=== PATIENT | female | born 1935 | race Caucasian/White ===

== ENCOUNTER 2018-12-11 11:18 | Inpatient (IN) | payer MEDICARE, BC ==
[~2018-12-11] VITALS: Ht 165.1 cm; Wt 60.0 kg
[~2018-12-11 11:18] MED LIST: ASPI-1265 PO; CARV3.122 PO; FLEC100T2 PO; MELO-100 PO; RABE20TA28 PO
[2018-12-11 11:46] LABS: BASOPHILS % (AUTO) 0.6 % (0-1); EOSINOPHILS # (AUTO) 0.1 X10'3 (0-0.9); EOSINOPHILS % (AUTO) 1.9 % (0-6); HEMATOCRIT 38.8 % (35.0-45.0); HEMOGLOBIN 13.1 g/dl (12.0-16.0); LYMPHOCYTES % (AUTO) 14.6 % (21-51); MEAN CORPUSCULAR HEMOGLOBIN 33.4 PG (27.0-31.0); MEAN CORPUSCULAR HGB CONC 33.9 g/dL (33.0-36.5); MEAN CORPUSCULAR VOLUME 98.4 FL (78-98); MONOCYTES # (AUTO) 0.6 X10'3 (0-0.9); MONOCYTES % (AUTO) 8.3 % (2-12); NEUTROPHILS # (AUTO) 5.2 X10'3 (1.8-7.7); NEUTROPHILS % (AUTO) 74.6 % (42-75); PLATELET COUNT 195 X10'3 (140-440); RED BLOOD COUNT 3.94 X10'6 (4.20-5.60); RED CELL DISTRIBUTION WIDTH 15.1 % (11.5-14.5); WHITE BLOOD COUNT 6.9 X10'3 (4.5-11.0)
[2018-12-11 12:03] LABS: ALANINE AMINOTRANSFERASE 199 U/L (12-78); ALBUMIN 3.7 G/DL (3.4-5.0); ALBUMIN/GLOBULIN RATIO 1.1 (1.1-1.5); ALKALINE PHOSPHATASE 171 IU/L (46-116); ANION GAP 8 (8-16); ASPARTATE AMINO TRANSFERASE 82 U/L (10-37); BILIRUBIN,TOTAL 0.8 MG/DL (0.1-1.0); BLOOD UREA NITROGEN 16 MG/DL (7-18); BUN/CREATININE RATIO 17.4 (6.6-38.0); CALCIUM 9.2 MG/DL (8.5-10.1); CHLORIDE 101 MMOL/L (99-107); CREATININE 0.92 MG/DL (0.40-0.90); GLUCOSE 115 MG/DL (70-104); POTASSIUM 4.3 MMOL/L (3.5-5.1); SODIUM 137 MMOL/L (135-145); TOTAL CARBON DIOXIDE 28.3 MMOL/L (24-32); eGFR 58 ML/MIN
[2018-12-11 12:05] LABS: PARTIAL THROMBOPLASTIN TIME 25 SECONDS (22-32)
[2018-12-11] MEDS ORDERED: flecainide 50mg tablet PO SCH (12:15)
[2018-12-11] MEDS ORDERED: diltiazem 5mg/ml 5ml inj. IV ONE ×3 (12:20→18:35)
[2018-12-11] MEDS ORDERED: aspirin 325mg tablet PO ONE (12:45)
[2018-12-11] MEDS ORDERED: mag hydrox/Alum hydrox/simeth 30ml oral suspension PO PRN (14:20)
[2018-12-11] MEDS ORDERED: magnesium hydroxide 30ml (MOM) UD suspension PO PRN (14:20)
[2018-12-11] MEDS ORDERED: morphine 2 MG/ML inj. syringe IV PRN ×2 (14:20)
[2018-12-11] MEDS ORDERED: ondansetron/PF 4mg/2ml inj IV PRN (14:20)
[2018-12-11] MEDS ORDERED: acetaminophen 325mg tablet PO PRN ×2 (14:20)
[2018-12-11] MEDS ORDERED: FLEC50TA26 PO (15:30)
[2018-12-11 16:16] VITALS: BP 155/94
--- NOTE | 2018-12-11 16:17 | NUR ---
Received patient from ER, obtained vital signs and hooked patient up to tele. Patient is in no apparent distress. Patient oriented to new environment. Will continue to monitor.
--- NOTE | 2018-12-11 17:34 | NUR ---
PAGER ID: [phone] MESSAGE: [phone] Malu Gomez Please address med rec/home med list. If you need nursing to print out TMS please let us know, Thank you. VISHAL Mcelroy
[2018-12-11 18:00] VITALS: BP 136/93
--- NOTE | 2018-12-11 18:18 | NUR ---
Patient in room PCU 3025. I have received report from Lilibeth WINN and had the opportunity to ask questions and assume patient care.
--- NOTE | 2018-12-11 18:22 | NUR ---
Problems reprioritized. Patient report given, questions answered & plan of care reviewed with Rocío.
[2018-12-11] MEDS ORDERED: diltiazem CD 180mg cap (once-daily) PO SCH (18:35)
[2018-12-11] MEDS: flecainide 50mg tablet PO SCH (18:46)
--- NOTE | 2018-12-11 18:49 | NUR ---
Spoke with Dr Song regarding pts rate being in the 120s-130s. MD ordered Cardizem CD 180mg PO once, Cardizem 10mg IV once, Eliquis 5mg PO once, and echo in the morning, and to hold tonights dose of flecainide.
[2018-12-11] MEDS: carVEDilol 3.125mg tablet PO SCH (19:02)
[2018-12-11] MEDS: apixaban 5mg tablet PO SCH (19:02)
[2018-12-11 22:00] VITALS: BP 114/62
--- NOTE | 2018-12-12 00:55 | NUR ---
Patient in room PCU 3025. I have received report from PA Alford and had the opportunity to ask questions and assume patient care.
--- NOTE | 2018-12-12 00:56 | NUR ---
I agree with Full assessment from PA Alford
[2018-12-12 02:00] VITALS: BP 108/72
[2018-12-12 04:57] LABS: BASOPHILS % (AUTO) 0.8 % (0-1); EOSINOPHILS # (AUTO) 0.3 X10'3 (0-0.9); EOSINOPHILS % (AUTO) 5.3 % (0-6); HEMATOCRIT 34.4 % (35.0-45.0); HEMOGLOBIN 11.9 g/dl (12.0-16.0); LYMPHOCYTES # (AUTO) 1.3 X10'3 (1.1-4.8); LYMPHOCYTES % (AUTO) 24.2 % (21-51); MEAN CORPUSCULAR HEMOGLOBIN 33.7 PG (27.0-31.0); MEAN CORPUSCULAR HGB CONC 34.6 g/dL (33.0-36.5); MEAN CORPUSCULAR VOLUME 97.6 FL (78-98); MEAN PLATELET VOLUME 8.4 FL (7.4-10.4); MONOCYTES # (AUTO) 0.6 X10'3 (0-0.9); MONOCYTES % (AUTO) 11.4 % (2-12); NEUTROPHILS % (AUTO) 58.3 % (42-75); PLATELET COUNT 174 X10'3 (140-440); RED BLOOD COUNT 3.53 X10'6 (4.20-5.60); RED CELL DISTRIBUTION WIDTH 14.8 % (11.5-14.5); WHITE BLOOD COUNT 5.2 X10'3 (4.5-11.0)
[2018-12-12 05:12] LABS: ANION GAP 7 (8-16); BLOOD UREA NITROGEN 15 MG/DL (7-18); BUN/CREATININE RATIO 16.5 (6.6-38.0); CALCIUM 8.6 MG/DL (8.5-10.1); CHLORIDE 105 MMOL/L (99-107); CREATININE 0.91 MG/DL (0.40-0.90); GLUCOSE 88 MG/DL (70-104); POTASSIUM 3.7 MMOL/L (3.5-5.1); SODIUM 140 MMOL/L (135-145); TOTAL CARBON DIOXIDE 27.7 MMOL/L (24-32); eGFR 59 ML/MIN
--- NOTE | 2018-12-12 06:37 | NUR ---
Problems reprioritized. Patient report given, questions answered & plan of care reviewed with PA Mcelroy.
--- NOTE | 2018-12-12 06:37 | NUR ---
Patient in room PCU 3025. I have received report from Luba and had the opportunity to ask questions and assume patient care.
[2018-12-12 07:00] VITALS: BP 122/73
[2018-12-12] MEDS: flecainide 50mg tablet PO SCH ×3 (08:30→20:59)
[2018-12-12] MEDS: pantoprazole 40mg Tablet.DR PO SCH (08:30)
[2018-12-12] MEDS: carVEDilol 3.125mg tablet PO SCH (08:31)
--- NOTE | 2018-12-12 09:24 | NUR ---
Per Dr. Song, administer another 50 mg of flecanide today to equal 100 mg total and change her current order to reflect 100 mg po BID thereafter.
[2018-12-12] MEDS: diltiazem CD 180mg cap (once-daily) PO SCH (10:00)
[2018-12-12] MEDS: apixaban 5mg tablet PO SCH ×3 (10:00→21:00)
[2018-12-12 11:00] VITALS: BP 119/76
--- NOTE | 2018-12-12 14:46 | NUR ---
Page sent to Dr. Song PAGER ID: [phone] MESSAGE: [id number] Sue Gomez, ISACI - Pt's HR dropped into the 40's, patient was up in the BR during that time. HR has returned to 70's. Patient c/o SOB only. BP 91/57 at this time. Lilibeth WINN, PCU 0243
[2018-12-12 15:00] VITALS: BP 128/71
--- NOTE | 2018-12-12 16:14 | NUR ---
PAGER ID: [phone] MESSAGE: [phone] Sue Gomez, Dr. Wilkins's office called back and stating he is out of town, I was not able to speak to him. HR trending 60-70's now. PA Mcelroy PCU [id number]
--- NOTE | 2018-12-12 18:18 | NUR ---
Dr. Wilkins in to see patient. No changes in current regimen. stated may need a possible cardioversion next week if her rhythm does not convert and she will need a FU ekg in 1 week. No changes made to POC at this time. Patient is stable and asymptomatic at this time.
--- NOTE | 2018-12-12 18:31 | NUR ---
Problems reprioritized. Patient report given, questions answered & plan of care reviewed with Luba.
--- NOTE | 2018-12-12 18:38 | NUR ---
Patient in room PCU 3025. I have received report from PA Mcelroy and had the opportunity to ask questions and assume patient care.
[2018-12-12 18:45] VITALS: BP 123/65
[2018-12-12 23:00] VITALS: BP 107/70
[2018-12-13 03:00] VITALS: BP 130/76
[2018-12-13 04:59] LABS: BASOPHILS % (AUTO) 0.7 % (0-1); EOSINOPHILS # (AUTO) 0.3 X10'3 (0-0.9); EOSINOPHILS % (AUTO) 5.6 % (0-6); HEMATOCRIT 35.4 % (35.0-45.0); HEMOGLOBIN 12.2 g/dl (12.0-16.0); LYMPHOCYTES # (AUTO) 1.2 X10'3 (1.1-4.8); LYMPHOCYTES % (AUTO) 21.6 % (21-51); MEAN CORPUSCULAR HEMOGLOBIN 33.4 PG (27.0-31.0); MEAN CORPUSCULAR HGB CONC 34.6 g/dL (33.0-36.5); MEAN CORPUSCULAR VOLUME 96.6 FL (78-98); MONOCYTES # (AUTO) 0.6 X10'3 (0-0.9); MONOCYTES % (AUTO) 11.2 % (2-12); NEUTROPHILS # (AUTO) 3.5 X10'3 (1.8-7.7); NEUTROPHILS % (AUTO) 60.9 % (42-75); PLATELET COUNT 179 X10'3 (140-440); RED BLOOD COUNT 3.67 X10'6 (4.20-5.60); WHITE BLOOD COUNT 5.8 X10'3 (4.5-11.0)
[2018-12-13 05:18] LABS: ALBUMIN 3.2 G/DL (3.4-5.0); ANION GAP 7 (8-16); BLOOD UREA NITROGEN 13 MG/DL (7-18); BUN/CREATININE RATIO 16.5 (6.6-38.0); CALCIUM 8.4 MG/DL (8.5-10.1); CHLORIDE 102 MMOL/L (99-107); CREATININE 0.79 MG/DL (0.40-0.90); GLUCOSE 92 MG/DL (70-104); POTASSIUM 3.5 MMOL/L (3.5-5.1); SODIUM 136 MMOL/L (135-145); TOTAL CARBON DIOXIDE 27.4 MMOL/L (24-32); eGFR 70 ML/MIN
[2018-12-13 06:00] VITALS: BP 139/94
--- NOTE | 2018-12-13 06:17 | NUR ---
Problems reprioritized. Patient report given, questions answered & plan of care reviewed with PA Farrell.
[2018-12-13] MEDS: diltiazem CD 180mg cap (once-daily) PO SCH (07:33)
[2018-12-13] MEDS: pantoprazole 40mg Tablet.DR PO SCH (07:33)
[2018-12-13] MEDS: apixaban 5mg tablet PO SCH (07:33)
[2018-12-13] MEDS: flecainide 50mg tablet PO SCH ×2 (07:34→10:05)
--- NOTE | 2018-12-13 07:52 | NUR ---
PAGER ID: [phone] MESSAGE: patient MRS. HARVEY in [id number] is very set on leaving today, I want to be sure she leaves with the proper RX before she tries to go. Thank you- Jolanta WINN
[2018-12-13] MEDS ORDERED: TAM50T PO (08:19)
[2018-12-13] MEDS ORDERED: APIX5TAB3 PO (08:19)
[2018-12-13] MEDS ORDERED: DILT180C66 PO (08:20)
--- NOTE | 2018-12-13 10:32 | NUR ---
patient discharged with all belongings and family is driving her home, went with new RX that were reviewed and discharge packet was reviewed and signed by the patient. RX called in to [facility] on [address] [place] and patient instructed to follow up with anatoly in one week. ALL POC reviewed with patient and son at the bedside
== END 2018-12-13 10:18 | disposition home or self-care (01) | DRG 309 ==
LOC: ER 11:18 → ED HOLD 14:21 → EDBEDREQ 15:15 → PCU 3S 15:45
PROVIDERS: ADMIT Internal Medicine; ATTEND Internal Medicine
DX: I48.0 Paroxysmal atrial fibrillation (principal); I31.3 Pericardial effusion (noninflammatory); I25.10 Atherosclerotic heart disease of native coronary artery without angina pectoris; Z96.619 Presence of unspecified artificial shoulder joint; Z96.653 Presence of artificial knee joint, bilateral; K21.9 Gastro-esophageal reflux disease without esophagitis; R74.0 Nonspecific elevation of levels of transaminase and lactic acid dehydrogenase [LDH]; I08.1 Rheumatic disorders of both mitral and tricuspid valves; M19.90 Unspecified osteoarthritis, unspecified site; I49.5 Sick sinus syndrome; Z86.718 Personal history of other venous thrombosis and embolism; Z85.3 Personal history of malignant neoplasm of breast; Z79.01 Long term (current) use of anticoagulants; Z79.82 Long term (current) use of aspirin; Z79.899 Other long term (current) drug therapy; Z87.891 Personal history of nicotine dependence
CPT/HCPCS: 36415; 71045; 80048; 80053; 83880; 84443; 84484; 85025; 85610; 85730; 87081; 93005; 93306; 93971; 96374; 99285; G0378; J3490

== ENCOUNTER 2019-01-23 07:46 | Day surgery (SDC) | payer MEDICARE, BC ==
[2019-01-22 14:08] LABS: BASOPHILS % (AUTO) 0.6 % (0-1); EOSINOPHILS # (AUTO) 0.4 X10'3 (0-0.9); EOSINOPHILS % (AUTO) 5.7 % (0-6); HEMATOCRIT 39.9 % (35.0-45.0); HEMOGLOBIN 13.7 g/dl (12.0-16.0); LYMPHOCYTES # (AUTO) 1.5 X10'3 (1.1-4.8); LYMPHOCYTES % (AUTO) 20.9 % (21-51); MEAN CORPUSCULAR HEMOGLOBIN 33.1 PG (27.0-31.0); MEAN CORPUSCULAR HGB CONC 34.4 g/dL (33.0-36.5); MEAN CORPUSCULAR VOLUME 96.3 FL (78-98); MEAN PLATELET VOLUME 8.1 FL (7.4-10.4); MONOCYTES # (AUTO) 0.7 X10'3 (0-0.9); NEUTROPHILS # (AUTO) 4.6 X10'3 (1.8-7.7); NEUTROPHILS % (AUTO) 63.8 % (42-75); PLATELET COUNT 225 X10'3 (140-440); RED BLOOD COUNT 4.14 X10'6 (4.20-5.60); RED CELL DISTRIBUTION WIDTH 13.9 % (11.5-14.5); WHITE BLOOD COUNT 7.2 X10'3 (4.5-11.0)
[2019-01-22 14:09] LABS: ALBUMIN 3.9 G/DL (3.4-5.0); ANION GAP 4 (8-16); BLOOD UREA NITROGEN 18 MG/DL (7-18); BUN/CREATININE RATIO 19.6 (6.6-38.0); CALCIUM 8.9 MG/DL (8.5-10.1); CHLORIDE 102 MMOL/L (99-107); CREATININE 0.92 MG/DL (0.40-0.90); GLUCOSE 130 MG/DL (70-104); POTASSIUM 3.8 MMOL/L (3.5-5.1); SODIUM 137 MMOL/L (135-145); TOTAL CARBON DIOXIDE 31.1 MMOL/L (24-32); eGFR 58 ML/MIN
[2019-01-23] VITALS (10 sets, daily range): BP systolic 89–135; BP diastolic 48–91
[~2019-01-23] VITALS: Ht 160 cm; Wt 56.4 kg
[~2019-01-23 07:46] MED LIST changes: +APIX5TAB3 PO; -ASPI-1265 PO; +DILT180C66 PO; -FLEC100T2 PO; -MELO-100 PO; +TAM50T PO
[2019-01-23] MEDS ORDERED: amiodarone in dextrose, iso-osm 150mg/100ml bag IV ONE (08:05)
[2019-01-23] MEDS ORDERED: LORazepam 0.5 MG tablet PO ONE (08:05)
[2019-01-23] MEDS ORDERED: MIDAZolam 5mg/ml 2ml vial IV ONE (08:05)
[2019-01-23] MEDS ORDERED: diphenhydrAMINE 25mg capsule PO ONE ×2 (08:05→09:10)
[2019-01-23] MEDS ORDERED: morphine 10mg/ml inj. IV ONE (08:05)
[2019-01-23] MEDS ORDERED: normal saline 1000ml 1,000 ML IV SCH (08:05)
[2019-01-23] MEDS ORDERED: atropine 0.1mg/ml 10ml syringe IV ONE (08:05)
[2019-01-23] MEDS ORDERED: CARV-49 PO (08:08)
[2019-01-23] MEDS ORDERED: MELO-100 PO (08:08)
[2019-01-23] MEDS ORDERED: APIX5TAB3 PO (08:14)
[2019-01-23] MEDS ORDERED: DILT180T2 (08:16)
[2019-01-23] MEDS ORDERED: DILT-36 PO (08:17)
[2019-01-23] MEDS ORDERED: FLEC100T2 PO (08:18)
== END 2019-01-23 11:20 | disposition home or self-care (01) ==
LOC: SSTAY O 07:46
PROVIDERS: ATTEND Internal Medicine Cardiovascular Disease
DX: I48.0 Paroxysmal atrial fibrillation (principal); I25.10 Atherosclerotic heart disease of native coronary artery without angina pectoris; I10 Essential (primary) hypertension; I08.1 Rheumatic disorders of both mitral and tricuspid valves; Z79.899 Other long term (current) drug therapy
CPT/HCPCS: 36415; 80048; 85025; 85610; 92960; 93005; 94760; J0282; J0461; J2250; J2270; J7030; Q0163

== ENCOUNTER 2019-04-16 06:42 | Day surgery (SDC) | payer BC ==
[2019-04-15 13:12] LABS: BASOPHILS % (AUTO) 0.4 % (0-1); EOSINOPHILS # (AUTO) 0.3 X10'3 (0-0.9); EOSINOPHILS % (AUTO) 3.9 % (0-6); HEMATOCRIT 41.7 % (35.0-45.0); HEMOGLOBIN 14.1 g/dl (12.0-16.0); LYMPHOCYTES # (AUTO) 1.5 X10'3 (1.1-4.8); LYMPHOCYTES % (AUTO) 19.6 % (21-51); MEAN CORPUSCULAR HEMOGLOBIN 32.4 PG (27.0-31.0); MEAN CORPUSCULAR HGB CONC 33.8 g/dL (33.0-36.5); MEAN CORPUSCULAR VOLUME 96.1 FL (78-98); MEAN PLATELET VOLUME 8.2 FL (7.4-10.4); MONOCYTES # (AUTO) 0.5 X10'3 (0-0.9); MONOCYTES % (AUTO) 6.8 % (2-12); NEUTROPHILS # (AUTO) 5.2 X10'3 (1.8-7.7); NEUTROPHILS % (AUTO) 69.3 % (42-75); PLATELET COUNT 220 X10'3 (140-440); RED BLOOD COUNT 4.34 X10'6 (4.20-5.60); RED CELL DISTRIBUTION WIDTH 14.3 % (11.5-14.5); WHITE BLOOD COUNT 7.5 X10'3 (4.5-11.0)
[2019-04-15 13:18] LABS: ALBUMIN 3.9 G/DL (3.4-5.0); ANION GAP 6 (8-16); BLOOD UREA NITROGEN 23 MG/DL (7-18); BUN/CREATININE RATIO 27.7 (6.6-38.0); CALCIUM 9.2 MG/DL (8.5-10.1); CHLORIDE 102 MMOL/L (99-107); CREATININE 0.83 MG/DL (0.40-0.90); GLUCOSE 94 MG/DL (70-104); POTASSIUM 4.4 MMOL/L (3.5-5.1); SODIUM 136 MMOL/L (135-145); TOTAL CARBON DIOXIDE 27.8 MMOL/L (24-32); eGFR 66 ML/MIN
[2019-04-16] VITALS (11 sets, daily range): BP systolic 110–132; BP diastolic 64–97
[~2019-04-16] VITALS: Ht 157.5 cm; Wt 53.8 kg
[~2019-04-16 06:42] MED LIST changes: +CARV-49 PO; -CARV3.122 PO; +DILT-36 PO; -DILT180C66 PO; +FLEC100T2 PO; +MELO-100 PO; -RABE20TA28 PO; -TAM50T PO
[2019-04-16] MEDS ORDERED: diphenhydrAMINE 25mg capsule PO ONE (07:05)
[2019-04-16] MEDS ORDERED: normal saline 1000ml 1,000 ML IV SCH (07:05)
[2019-04-16] MEDS ORDERED: LORazepam 0.5 MG tablet PO ONE (07:05)
[2019-04-16] MEDS ORDERED: amiodarone in dextrose, iso-osm 150mg/100ml bag IV ONE (07:05)
[2019-04-16] MEDS ORDERED: MIDAZolam 1mg/ml 10ml vial IV ONE (07:05)
[2019-04-16] MEDS ORDERED: atropine 0.1mg/ml 10ml syringe IV ONE (07:05)
[2019-04-16] MEDS ORDERED: morphine 10mg/ml inj. IV ONE (07:05)
[2019-04-16] MEDS ORDERED: RABE20TA18 PO (07:18)
[2019-04-16] MEDS ORDERED: SOTA80TA73 PO ×2 (07:18)
== END 2019-04-16 11:10 | disposition home or self-care (01) ==
LOC: SSTAY O 06:42
PROVIDERS: ATTEND Internal Medicine Cardiovascular Disease
DX: I48.19 Other persistent atrial fibrillation (principal); I25.10 Atherosclerotic heart disease of native coronary artery without angina pectoris; Z79.899 Other long term (current) drug therapy; K21.9 Gastro-esophageal reflux disease without esophagitis; M19.90 Unspecified osteoarthritis, unspecified site; Z85.3 Personal history of malignant neoplasm of breast; Z96.653 Presence of artificial knee joint, bilateral; Z72.89 Other problems related to lifestyle; Z87.891 Personal history of nicotine dependence
CPT/HCPCS: 36415; 80048; 85025; 85610; 92960; 93005; J0461; J2250; J2270; J7030; Q0163

== ENCOUNTER 2019-06-20 06:55 | Outpatient (CLI) | payer BC ==
[~2019-06-20 06:55] MED LIST changes: -CARV-49 PO; -FLEC100T2 PO; -MELO-100 PO; +RABE20TA18 PO; +SOTA80TA73 PO
[2019-06-20 08:40] LABS: TOTAL HEMOGLOBIN 14.7 G/dl (12.0-16.0)
== END 2019-06-20 23:59 | disposition home or self-care (01) ==
LOC: RT 06:55
PROVIDERS: ATTEND Internal Medicine Cardiovascular Disease
DX: J44.9 Chronic obstructive pulmonary disease, unspecified (principal); Z79.899 Other long term (current) drug therapy
CPT/HCPCS: 71046; 85018; 94010; 94727; 94729

== ENCOUNTER 2019-09-19 16:58 | Emergency (ER) | payer BC ==
[~2019-09-19] VITALS: Ht 162.6 cm; Wt 55.5 kg
[2019-09-19 17:39] LABS: BASOPHILS % (AUTO) 0.2 % (0-1); EOSINOPHILS % (AUTO) 0.2 % (0-6); HEMOGLOBIN 12.5 g/dl (12.0-16.0); LYMPHOCYTES # (AUTO) 0.6 X10'3 (1.1-4.8); LYMPHOCYTES % (AUTO) 5.8 % (21-51); MEAN CORPUSCULAR HEMOGLOBIN 33.1 PG (27.0-31.0); MEAN CORPUSCULAR HGB CONC 33.9 g/dL (33.0-36.5); MEAN CORPUSCULAR VOLUME 97.7 FL (78-98); MEAN PLATELET VOLUME 7.8 FL (7.4-10.4); MONOCYTES # (AUTO) 1.1 X10'3 (0-0.9); MONOCYTES % (AUTO) 10.3 % (2-12); NEUTROPHILS # (AUTO) 8.6 X10'3 (1.8-7.7); NEUTROPHILS % (AUTO) 83.5 % (42-75); PLATELET COUNT 161 X10'3 (140-440); RED BLOOD COUNT 3.78 X10'6 (4.20-5.60); RED CELL DISTRIBUTION WIDTH 13.2 % (11.5-14.5); WHITE BLOOD COUNT 10.4 X10'3 (4.5-11.0)
[2019-09-19 17:55] LABS: ALANINE AMINOTRANSFERASE 42 U/L (12-78); ALBUMIN 3.7 G/DL (3.4-5.0); ALBUMIN/GLOBULIN RATIO 1.2 (1.1-1.5); ALKALINE PHOSPHATASE 63 IU/L (46-116); ANION GAP 6 (8-16); ASPARTATE AMINO TRANSFERASE 56 U/L (10-37); BILIRUBIN,TOTAL 0.9 MG/DL (0.1-1.0); BLOOD UREA NITROGEN 18 MG/DL (7-18); CALCIUM 8.4 MG/DL (8.5-10.1); CHLORIDE 98 MMOL/L (99-107); GLUCOSE 119 MG/DL (70-104); POTASSIUM 3.6 MMOL/L (3.5-5.1); SODIUM 132 MMOL/L (135-145); TOTAL CARBON DIOXIDE 28.1 MMOL/L (24-32); TOTAL PROTEIN 6.8 G/DL (6.4-8.2); eGFR 60 ML/MIN
[2019-09-19] MEDS ORDERED: ketorolac tromethamine 15mg/ml inj. IV ONE (18:30)
[2019-09-19 18:47] LABS: D-DIMER 1.92 MG/L FEU (0-0.50)
[2019-09-19] MEDS ORDERED: iohexol 350MG/ML 100ml bottle IV ONE ×2 (19:33→19:51)
[2019-09-19] MEDS ORDERED: iohexol 350 MG/ML 50ML vial IV ONE (20:24)
[2019-09-19 21:02] VITALS: BP 123/65
== END 2019-09-19 21:59 | disposition home or self-care (01) ==
LOC: ER 16:58
DX: R07.2 Precordial pain (principal); R06.02 Shortness of breath; R11.0 Nausea; I48.91 Unspecified atrial fibrillation; I25.10 Atherosclerotic heart disease of native coronary artery without angina pectoris; K21.9 Gastro-esophageal reflux disease without esophagitis; M19.90 Unspecified osteoarthritis, unspecified site; Z98.890 Other specified postprocedural states; Z88.0 Allergy status to penicillin; Z79.01 Long term (current) use of anticoagulants; Z79.899 Other long term (current) drug therapy
CPT/HCPCS: 36415; 71045; 71275; 80053; 83880; 84484; 85025; 85379; 93005; 99285; Q9967

== ENCOUNTER 2020-04-29 06:55 | Outpatient (CLI) | payer BC ==
[~2020-04-29] VITALS: Ht 163.8 cm; Wt 56.7 kg
[2020-04-29 07:35] LABS: TOTAL HEMOGLOBIN 11.4 G/dl (12.0-16.0)
[2020-04-29] MEDS ORDERED: albuterol 2.5 MG/3 ML nebule NEB ONE (08:05)
== END 2020-04-29 23:59 | disposition home or self-care (01) ==
LOC: RT 06:55
PROVIDERS: ATTEND Internal Medicine Cardiovascular Disease
DX: J44.9 Chronic obstructive pulmonary disease, unspecified (principal); Z96.611 Presence of right artificial shoulder joint
CPT/HCPCS: 71046; 85018; 94060; 94727; 94729; 94760

== ENCOUNTER 2022-11-09 07:21 | Day surgery (SDC) | payer BC ==
[2022-11-08 14:38] LABS: BASOPHILS # (AUTO) 0.1 X10'3 (0-0.2); BASOPHILS % (AUTO) 0.9 % (0-1); EOSINOPHILS # (AUTO) 0.2 X10'3 (0-0.9); EOSINOPHILS % (AUTO) 1.9 % (0-6); HEMATOCRIT 41.8 % (35.0-45.0); HEMOGLOBIN 14.2 g/dl (12.0-16.0); LYMPHOCYTES # (AUTO) 1.6 X10'3 (1.1-4.8); LYMPHOCYTES % (AUTO) 20.1 % (21-51); MEAN CORPUSCULAR HEMOGLOBIN 32.7 PG (27.0-31.0); MEAN CORPUSCULAR VOLUME 96.2 FL (78-98); MEAN PLATELET VOLUME 7.5 FL (7.4-10.4); MONOCYTES # (AUTO) 0.7 X10'3 (0-0.9); MONOCYTES % (AUTO) 8.2 % (2-12); NEUTROPHILS # (AUTO) 5.6 X10'3 (1.8-7.7); NEUTROPHILS % (AUTO) 68.9 % (42-75); PLATELET COUNT 207 X10'3 (140-440); RED BLOOD COUNT 4.34 X10'6 (4.20-5.60); RED CELL DISTRIBUTION WIDTH 14.4 % (11.5-14.5); WHITE BLOOD COUNT 8.1 X10'3 (4.5-11.0)
[2022-11-08 14:47] LABS: ALBUMIN 3.8 G/DL (3.4-5.0); ANION GAP 5 (8-16); BLOOD UREA NITROGEN 27 MG/DL (7-18); BUN/CREATININE RATIO 21.3 (10.0-20.0); CHLORIDE 99 MMOL/L (99-107); CREATININE 1.27 MG/DL (0.40-0.90); GLUCOSE 114 MG/DL (70-104); POTASSIUM 3.7 MMOL/L (3.5-5.1); SODIUM 135 MMOL/L (135-145); TOTAL CARBON DIOXIDE 30.7 MMOL/L (24-32); eGFR 40 ML/MIN
[2022-11-08 15:06] LABS: PROTHROMBIN TIME 10.5 SECONDS (9.0-12.0)
== END 2022-11-09 09:55 | disposition home or self-care (01) ==
LOC: SSTAY O 07:21
PROVIDERS: ATTEND Internal Medicine Cardiovascular Disease
DX: I48.0 Paroxysmal atrial fibrillation (principal); Z53.8 Procedure and treatment not carried out for other reasons; I25.10 Atherosclerotic heart disease of native coronary artery without angina pectoris; M19.90 Unspecified osteoarthritis, unspecified site; I11.0 Hypertensive heart disease with heart failure; I50.30 Unspecified diastolic (congestive) heart failure; I49.5 Sick sinus syndrome; I27.20 Pulmonary hypertension, unspecified; E78.5 Hyperlipidemia, unspecified; I08.1 Rheumatic disorders of both mitral and tricuspid valves; Z79.899 Other long term (current) drug therapy; Z79.01 Long term (current) use of anticoagulants; Z85.3 Personal history of malignant neoplasm of breast; Z98.890 Other specified postprocedural states; Z72.89 Other problems related to lifestyle; Z87.891 Personal history of nicotine dependence; Z81.8 Family history of other mental and behavioral disorders
CPT/HCPCS: 36415; 80048; 85025; 85610; 93005; J7030

== ENCOUNTER 2022-11-30 09:20 | Inpatient (IN) | payer BC ==
[2022-11-30] VITALS (17 sets, daily range): BP systolic 94–137; BP diastolic 47–88; PULSE 27–61; RESP 12–20; O2SAT 93–99
[~2022-11-30] VITALS: Ht 162.6 cm; Wt 47.8 kg
[2022-11-30 09:54] LABS: BASOPHILS % (AUTO) 0.2 % (0-1); EOSINOPHILS % (AUTO) 0.4 % (0-6); HEMATOCRIT 42.2 % (35.0-45.0); HEMOGLOBIN 14.3 g/dl (12.0-16.0); LYMPHOCYTES % (AUTO) 10.4 % (21-51); MEAN CORPUSCULAR HEMOGLOBIN 32.6 PG (27.0-31.0); MEAN CORPUSCULAR HGB CONC 33.8 g/dL (33.0-36.5); MEAN CORPUSCULAR VOLUME 96.6 FL (78-98); MEAN PLATELET VOLUME 8.4 FL (7.4-10.4); MONOCYTES # (AUTO) 0.7 X10'3 (0-0.9); MONOCYTES % (AUTO) 7.6 % (2-12); NEUTROPHILS # (AUTO) 7.5 X10'3 (1.8-7.7); NEUTROPHILS % (AUTO) 81.4 % (42-75); PLATELET COUNT 253 X10'3 (140-440); RED BLOOD COUNT 4.37 X10'6 (4.20-5.60); RED CELL DISTRIBUTION WIDTH 14.3 % (11.5-14.5); WHITE BLOOD COUNT 9.2 X10'3 (4.5-11.0)
[2022-11-30 10:15] LABS: ALANINE AMINOTRANSFERASE 197 U/L (12-78); ALBUMIN 3.9 G/DL (3.4-5.0); ALKALINE PHOSPHATASE 92 IU/L (46-116); ANION GAP 8 (8-16); BILIRUBIN,TOTAL 0.5 MG/DL (0.1-1.0); BLOOD UREA NITROGEN 34 MG/DL (7-18); BUN/CREATININE RATIO 16.3 (10.0-20.0); CALCIUM 9.2 MG/DL (8.5-10.1); CHLORIDE 93 MMOL/L (99-107); CREATININE 2.09 MG/DL (0.40-0.90); GLUCOSE 139 MG/DL (70-104); SODIUM 129 MMOL/L (135-145); TOTAL CARBON DIOXIDE 28.4 MMOL/L (24-32); TOTAL PROTEIN 7.9 G/DL (6.4-8.2); eCRCL 17 ML/MIN; eGFR 22 ML/MIN
[2022-11-30 10:21] LABS: PRO BRAIN NATRIURETIC PEPTIDE 1839 PG/ML (0-450)
[2022-11-30 10:22] LABS: ASPARTATE AMINO TRANSFERASE 192 U/L (10-37)
--- NOTE | 2022-11-30 10:48 | NUR ---
Lining Baster in room, recommending pacemaker. Addendum: 11/30/22 at 1051 by [email or web address] [employer] Dr Pedro, resident MD from ICU, explaining plan of care to pt. Admission to ICU and subsequent pacemaker placement recommended from MD's. Pt now ICU pt awaiting transfer to room on unit.
[2022-11-30] MEDS ORDERED: morphine 4 MG/ML inj SYRINge IV PRN (11:10)
[2022-11-30] MEDS ORDERED: magnesium hydroxide 30ml (MOM) UD suspension PO PRN (11:10)
[2022-11-30] MEDS ORDERED: acetaminophen 325mg tablet PO PRN ×2 (11:10)
[2022-11-30] MEDS: normal saline 1000ml 1,000 ML IV SCH (11:10)
[2022-11-30] MEDS ORDERED: morphine 2 MG/ML inj. syringe IV PRN (11:10)
[2022-11-30] MEDS ORDERED: WATER IV ONE ×6 (11:25→11:37)
[2022-11-30] MEDS ORDERED: GLUCAGON IV ONE ×6 (11:25→11:37)
[2022-11-30] MEDS ORDERED: DEXTROSE 5% IV ONE ×6 (11:25→11:37)
[2022-11-30] MEDS ORDERED: HUMAN RECOMBINANT IV ONE ×6 (11:25→11:37)
[2022-11-30] MEDS ORDERED: WATER IV SCH ×6 (11:30→12:51)
[2022-11-30] MEDS ORDERED: DEXTROSE 5% IV SCH ×6 (11:30→12:51)
[2022-11-30] MEDS ORDERED: GLUCAGON IV SCH ×6 (11:30→12:51)
[2022-11-30] MEDS ORDERED: HUMAN RECOMBINANT IV SCH ×6 (11:30→12:51)
--- NOTE | 2022-11-30 11:40 | NUR ---
Called pharmacy for ordered meds-glucagon, they will deliver when ready.
--- NOTE | 2022-11-30 12:09 | NUR ---
SPOKE WITH DR ALVARES VIA TELEPHONE TO INFORM MD PATIENT WAS SEVERELY NAUSEOUS WITH GLUCAGON INFUSION (SEE EMAR) AFTER 50 ML INFUSED AND HELD. PER MD GIVE ZOFRAN ORDERED AND THEN CONTINUE INFUSION. PRIMARY RN AUSTIN ZHOU.
[2022-11-30] MEDS: ondansetron/PF 4mg/2ml inj IV PRN ×2 (12:18→14:14)
--- NOTE | 2022-11-30 12:24 | NUR ---
Pt tx for nausea, given warm blankets. aware.
--- NOTE | 2022-11-30 13:01 | NUR ---
CALLED PT SON ORIANA TO GET CONSENT FOR PACEMAKER PLACEMENT. COULD NOT REACH HIM. WILL TRY AGAIN.
--- NOTE | 2022-11-30 13:07 | NUR ---
Dr Adan at bedside to speak with patient regarding pacemaker placement this afternoon, aware her son is to be contacted for consent.
--- NOTE | 2022-11-30 13:12 | NUR ---
SPOKE WITH SON OF PT. NOTIFIED HIM THAT PT WILL BE GOING TO OR FOR PACEMAKER PLACEMENT THIS AFTERNOON. [phone] (ORIANA)
[2022-11-30] MEDS ORDERED: pneumococcal 23-VAL P-sac vacc 25 mcg/0.5ml vial IMVAC ONE (14:15)
[2022-11-30] MEDS ORDERED: METO-384 PO (15:40)
[2022-11-30] MEDS ORDERED: AMI200T PO (15:40)
[2022-11-30] MEDS ORDERED: FURO20TA4 PO (15:40)
[2022-11-30] MEDS ORDERED: DONE10TA44 PO (15:40)
[2022-11-30] MEDS ORDERED: APIX5TAB3 PO (15:41)
[2022-11-30] MEDS ORDERED: DOPamine 400mg/D5W 250ml 250 ML IV ONE (16:03)
[2022-11-30] MEDS: DOPamine 400mg/D5W 250ml 250 ML IV SCH ×2 (16:04→23:03)
[2022-11-30] MEDS ORDERED: fentaNYL/PF 50MCG/1 ML 2ML syringe ONE (16:42)
[2022-11-30] MEDS ORDERED: midazolam 1 mg/ML 2ml injection ONE (16:42)
--- NOTE | 2022-11-30 16:58 | NUR ---
Patient escorted via gurney to OR by two RN's
[2022-11-30] MEDS ORDERED: LIDOcaine 1% 30ml preserv. free vial ONE (17:10)
[2022-11-30] MEDS ORDERED: heparin 10,000 units/1 ML INJ ONE (17:16)
[2022-11-30] MEDS ORDERED: ceFAZolin 1000mg inj ONE ×2 (17:20)
[2022-11-30] MEDS ORDERED: LIDOcaine 1% 30ml preserv. free vial IJ ONE (17:25)
[2022-11-30] MEDS ORDERED: HYDROcodone/acetaminophen 5mg/325mg tablet PO PRN (18:00)
[2022-11-30] MEDS ORDERED: naloxone 0.4 mg/ml inj IV PRN (18:00)
[2022-11-30] MEDS ORDERED: ondansetron/PF 4mg/2ml inj IV PRN (18:00)
--- NOTE | 2022-11-30 18:03 | NUR ---
Received from OR via ICU BED TO RR 8, accompanied by Anesthesiologist DR BRITTON and report given by Anesthesiolgist. PT PRESENTS WITH PIV 20G RIGHT AC, 20G LEFT AC, SPO2 99% 2L NASAL CANULA, NS RUNNING AT 100MLS/HR, LEFT ARM IN SLING WITH STERI STRIPS ON LEFT UPPER CHEST CDI, VSS. Addendum: 11/30/22 at 1837 by Kina Tabor RN, RN Amended: Links added.
--- NOTE | 2022-11-30 18:53 | NUR ---
PT CALLED ORIANA MARTINES
--- NOTE | 2022-11-30 19:23 | NUR ---
Report called to receiving nurse MARVA WINN. Transferred via ICU BED TO ROOM 2039. BED IN LOW LOCKED POSITION, CONSTANTINE LIGHT IN REACH, PT HOOKED UP TO BEDSIDE MONITOR, PT BELONGINGS LEFT IN PT ROOM 2039. Special Issues communicated to receiving nurse. Addendum: 11/30/22 at 1934 by Kina Tabor RN RN Amended: Links added.
--- NOTE | 2022-11-30 19:48 | NUR ---
arrived from OR at 1930 via bed, on monitor and 2l nc - a/ox3, pleasant, denied pain/needs - catherine ruiz rn
[2022-12-01] VITALS (17 sets, daily range): BP systolic 113–154; BP diastolic 54–80; PULSE 60–68; RESP 1–20; TEMP 97.5–97.8; O2SAT 61–98
[2022-12-01] MEDS: normal saline 1000ml 1,000 ML IV SCH ×2 (00:13→13:50)
[2022-12-01] MEDS: clindamycin 600mg/D5W 50ml 50 ML IV SCH ×4 (00:13→23:49)
[2022-12-01 06:04] LABS: BASOPHILS # (AUTO) 0.2 X10'3 (0-0.2); BASOPHILS % (AUTO) 1.9 % (0-1); EOSINOPHILS # (AUTO) 0.1 X10'3 (0-0.9); EOSINOPHILS % (AUTO) 0.6 % (0-6); HEMATOCRIT 41.3 % (35.0-45.0); LYMPHOCYTES % (AUTO) 10.4 % (21-51); MEAN CORPUSCULAR HEMOGLOBIN 32.5 PG (27.0-31.0); MEAN CORPUSCULAR HGB CONC 33.9 g/dL (33.0-36.5); MEAN PLATELET VOLUME 7.9 FL (7.4-10.4); MONOCYTES % (AUTO) 9.7 % (2-12); NEUTROPHILS # (AUTO) 7.8 X10'3 (1.8-7.7); NEUTROPHILS % (AUTO) 77.4 % (42-75); PLATELET COUNT 184 X10'3 (140-440)
[2022-12-01 06:23] LABS: ALANINE AMINOTRANSFERASE 118 U/L (12-78); ALBUMIN 3.2 G/DL (3.4-5.0); ALKALINE PHOSPHATASE 81 IU/L (46-116); ANION GAP 10 (8-16); ASPARTATE AMINO TRANSFERASE 81 U/L (10-37); BILIRUBIN,TOTAL 0.5 MG/DL (0.1-1.0); BLOOD UREA NITROGEN 25 MG/DL (7-18); CALCIUM 8.9 MG/DL (8.5-10.1); CHLORIDE 103 MMOL/L (99-107); GLUCOSE 70 MG/DL (70-104); MAGNESIUM 2.5 MG/DL (1.5-2.4); PHOSPHORUS 3.7 MG/DL (2.3-4.5); POTASSIUM 3.6 MMOL/L (3.5-5.1); SODIUM 137 MMOL/L (135-145); TOTAL CARBON DIOXIDE 23.8 MMOL/L (24-32); TOTAL PROTEIN 6.4 G/DL (6.4-8.2); eCRCL 30 ML/MIN; eGFR 53 ML/MIN
--- NOTE | 2022-12-01 06:30 | NUR ---
Assumed care of pt. Received report from Lay WINN. Pt resting quietly; no distress noted.
--- NOTE | 2022-12-01 08:35 | NUR ---
Pt dangled, stood, then sat on commode and voided. Pt pivoted well to chair for breakfast.
--- NOTE | 2022-12-01 10:24 | NUR ---
Pacemaker rep at bedside speaking to pt and her son who just arrived.
--- NOTE | 2022-12-01 11:24 | NUR ---
Pt up from chair and ambulating w/ PT.
--- NOTE | 2022-12-01 12:35 | NUR ---
Pt ambulated from chair to WC w/ minimal assist. Going to RAD for CXR w/ RN and monitor.
--- NOTE | 2022-12-01 12:47 | NUR ---
Noted pt with a low BMI of 18.1. Pt seen at bedside reports UBW 116-118 lbs and reports losing a couple of pounds [employer] CONSULTANT though endorses a good appetite and states she was eating well [employer] CONSULTANT with usual PO intake being eating out or getting meals from [employer] d/t not liking to cook. Pt appears appropriate. No concerns for malnutrition at this time. Pt currently on a clear liquid diet and eating well, documented with 75% PO intake of first meal. Pt eager to get diet advanced to solids, d/w RN. Pt denies food allergies, food preferences, or difficulty chewing or swallowing. Pt provided with RD contact information and encouraged to reach out if needed. Will continue to follow. Addendum: 12/01/22 at [address] Amended: Links added.
--- NOTE | 2022-12-01 13:00 | NUR ---
Pt waiting for Regular diet from the kitchen.
--- NOTE | 2022-12-01 17:46 | NUR ---
Report given to Curtis WINN. Pt on tele and moved well to .
--- NOTE | 2022-12-01 17:50 | NUR ---
Pt arrived from ICU. Settled into room. Playing on her phone. Sling on left arm.
[2022-12-02 02:00] VITALS: BP 143/64; PULSE 74; RESP 22; TEMP 97.4; O2SAT 92
[2022-12-02 06:00] VITALS: BP 161/86; PULSE 82; RESP 15; TEMP 98.2; O2SAT 93
--- NOTE | 2022-12-02 06:19 | NUR ---
Problems reprioritized. Patient report given, questions answered & plan of care reviewed with DARRELL WINN.
--- NOTE | 2022-12-02 06:40 | NUR ---
Assumed care of pt after report. Pt denies pain and is resting well.
[2022-12-02] MEDS: clindamycin 600mg/D5W 50ml 50 ML IV SCH (07:28)
[2022-12-02 07:45] LABS: BASOPHILS % (AUTO) 0.5 % (0-1); EOSINOPHILS # (AUTO) 0.1 X10'3 (0-0.9); EOSINOPHILS % (AUTO) 1.4 % (0-6); HEMATOCRIT 40.5 % (35.0-45.0); HEMOGLOBIN 13.7 g/dl (12.0-16.0); LYMPHOCYTES # (AUTO) 1.1 X10'3 (1.1-4.8); LYMPHOCYTES % (AUTO) 14.2 % (21-51); MEAN CORPUSCULAR HEMOGLOBIN 32.3 PG (27.0-31.0); MEAN CORPUSCULAR HGB CONC 33.9 g/dL (33.0-36.5); MEAN CORPUSCULAR VOLUME 95.3 FL (78-98); MEAN PLATELET VOLUME 7.8 FL (7.4-10.4); MONOCYTES # (AUTO) 0.7 X10'3 (0-0.9); MONOCYTES % (AUTO) 9.1 % (2-12); NEUTROPHILS # (AUTO) 5.9 X10'3 (1.8-7.7); NEUTROPHILS % (AUTO) 74.8 % (42-75); PLATELET COUNT 185 X10'3 (140-440); RED BLOOD COUNT 4.25 X10'6 (4.20-5.60); RED CELL DISTRIBUTION WIDTH 14.1 % (11.5-14.5); WHITE BLOOD COUNT 7.9 X10'3 (4.5-11.0)
[2022-12-02 08:24] LABS: ALANINE AMINOTRANSFERASE 83 U/L (12-78); ALBUMIN 3.2 G/DL (3.4-5.0); ALBUMIN/GLOBULIN RATIO 0.9 (1.1-1.5); ALKALINE PHOSPHATASE 79 IU/L (46-116); ANION GAP 8 (8-16); ASPARTATE AMINO TRANSFERASE 51 U/L (10-37); BILIRUBIN,TOTAL 0.4 MG/DL (0.1-1.0); BLOOD UREA NITROGEN 14 MG/DL (7-18); BUN/CREATININE RATIO 15.4 (10.0-20.0); CALCIUM 8.9 MG/DL (8.5-10.1); CHLORIDE 101 MMOL/L (99-107); CREATININE 0.91 MG/DL (0.40-0.90); GLUCOSE 102 MG/DL (70-104); PHOSPHORUS 2.7 MG/DL (2.3-4.5); POTASSIUM 4.6 MMOL/L (3.5-5.1); SODIUM 137 MMOL/L (135-145); TOTAL CARBON DIOXIDE 28.4 MMOL/L (24-32); TOTAL PROTEIN 6.7 G/DL (6.4-8.2); eCRCL 33 ML/MIN; eGFR 59 ML/MIN
--- NOTE | 2022-12-02 10:00 | NUR ---
Dr. Song and residents at bedside w/ pt. Discussing DC home.
[2022-12-02 11:00] VITALS: BP 151/77; PULSE 70; RESP 16; TEMP 97.9; O2SAT 97
[2022-12-02] MEDS ORDERED: FURO20TA4 PO (12:16)
--- NOTE | 2022-12-02 14:09 | NUR ---
Pt ate a good lunch and ambulated 300 ft around the unit. She tolerated it very well, denying pain or SOB. SL dc'd w/ cath intact. Pt's son to arrive at 1430 for DC home.
--- NOTE | 2022-12-02 14:35 | NUR ---
DC instructions given to pt and her son w/ understanding. Pt DC'd home via.
== END 2022-12-02 15:16 | disposition home or self-care (01) | DRG 242 ==
LOC: ER 09:21 → ED HOLD 11:21 → ICU 2S 13:30 → PCU 3S 12-01 17:41
PROVIDERS: ADMIT Internal Medicine Critical Care Medicine; ATTEND Internal Medicine Critical Care Medicine
PROC: 02H60JZ Insertion of Pacemaker Lead into Right Atrium, Open Approach (ICD-10-PCS; 2022-11-30)
PROC: 02HK0JZ Insertion of Pacemaker Lead into Right Ventricle, Open Approach (ICD-10-PCS; 2022-11-30)
PROC: 0JH606Z Insertion of Pacemaker, Dual Chamber into Chest Subcutaneous Tissue and Fascia, Open Approach (ICD-10-PCS; principal; 2022-11-30 16:43)
DX: I49.5 Sick sinus syndrome (principal); I50.31 Acute diastolic (congestive) heart failure; N17.0 Acute kidney failure with tubular necrosis; E87.1 Hypo-osmolality and hyponatremia; I25.10 Atherosclerotic heart disease of native coronary artery without angina pectoris; I48.91 Unspecified atrial fibrillation; M19.90 Unspecified osteoarthritis, unspecified site; N18.30 Chronic kidney disease, stage 3 unspecified; K21.9 Gastro-esophageal reflux disease without esophagitis; R74.01 Elevation of levels of liver transaminase levels; F03.90 Unspecified dementia, unspecified severity, without behavioral disturbance, psychotic disturbance, mood disturbance, and anxiety; Z88.0 Allergy status to penicillin; Z79.01 Long term (current) use of anticoagulants; Z79.899 Other long term (current) drug therapy; Z85.3 Personal history of malignant neoplasm of breast; Z90.10 Acquired absence of unspecified breast and nipple; Z90.710 Acquired absence of both cervix and uterus
CPT/HCPCS: 36415; 71045; 71046; 76000; 80053; 82948; 83735; 83880; 84100; 84484; 85025; 90732; 93005; 96365; 97161; 97535; 99285; A4215; A4615; A4618; A6213; A6258; A7000; C1785; G0378; J0690; J1265; J1610; J1644; J2250; J2405; J3010; J3490; J7030; J7040; J7060; J7120